=== PATIENT | female | born 2000 | race African-American/Black ===

== ENCOUNTER 2019-01-29 04:09 | Emergency (ER) | payer SELFPAY ==
[2019-01-29 04:45] LABS: #Basophils 0.1 thou/uL (0.0-0.2); #Lymphocytes 2.8 thou/uL (1.20-3.40); #Monocytes 0.7 thou/uL (0.11-0.59); #Neutrophils 5.5 thou/uL (1.40-6.50); %Basophils 0.6 % (0.0-1.0); %Eosinophils 0.1 % (0.0-10.0); %Monocytes 7.4 % (0.0-4.0); %Neutrophils 60.9 % (31.0-61.0); Hemoglobin 11.4 g/dL (12.0-16.0); Mean Corpuscular HGB CONC 31.3 g/dL (32.0-36.0); Mean Corpuscular Volume 76.7 fL (78.0-98.0); Mean Platelet Volume 8.5 fL (7.4-10.4); Platelet Count 241 thou/uL (130-400); RBC Distribution Width 13.7 % (11.5-14.5); Red Blood Cell (RBC) Count 4.75 mill/uL (4.00-5.20)
[2019-01-29 04:50] LABS: BHCG - Serum Negative (NEGATIVE); Pregs Control Background? CLEAR/WHITE (CLR/WHITE); Pregs Control Bar Appear? YES (CONTROL BAR)
[2019-01-29 05:04] LABS: ALT (SGPT) 12 U/L (8-55); AST (SGOT) 19 U/L (5-34); Alkaline Phosphatase 79 U/L (40-150); Anion Gap 11 mmol/L (10-20); BUN (Urea Nitrogen) 9 mg/dL (7.0-18.7); Bilirubin, Total 0.2 mg/dL (0.2-1.2); Calc. Creatinine Clearance 0 mL/min (70-130); Calcium 8.9 mg/dL (7.8-10.44); Carbon Dioxide 27 mmol/L (22-29); Chloride 100 mmol/L (98-107); Estimated GFR-MDRD 85; Globulin 3.3 g/dL (2.4-3.5); Glucose 91 mg/dL (70-105); Potassium 3.3 mmol/L (3.5-5.1); Protein, Total 7.3 g/dL (6.0-8.3); Sodium 135 mmol/L (136-145)
[2019-01-29] MEDS ORDERED: Mag-Al 1200 mg/1200 mg/30 ML UDCUP ONE (06:31)
[2019-01-29] MEDS ORDERED: Lidocaine Viscous Sol 2% 15 ml UD Cup ONE (06:31)
[2019-01-29] MEDS ORDERED: Ketorolac Tromethamine 30 MG/ML VIAL ONE (07:50)
--- NOTE | 2019-01-29 10:23 | RAD ---
CHEST 2 VIEWS: Date: 01/29/19 HISTORY: Chest pain x2 days. COMPARISON: None. FINDINGS: Normal cardiac silhouette. Lungs and pleural spaces are clear. No pneumothorax or osseous abnormaliti es. IMPRESSION: No acute cardiopulmonary process. POS: OFF
--- NOTE | 2019-01-29 10:50 | CT ---
CT ANGIO OF CHEST PERFORMED WITH IV CONTRAST ENHANCEMENT WITH 3D RECONSTRUCTIONS: Date: 01/29/19 HISTORY: Cough. Chest pain x3 days. Elevated D-Dimer. FINDINGS: The lungs are clear of any infiltrative process. There is no significant mediastinal or hilar adenopathy. No significant axillary adenopathy. Thoracic aorta is normal in caliber. There is fair pulmonary artery opacification. Smaller peripheral emboli cannot be excluded, but there is no CT evidence for any pulmonary embolus. Visualized liver parenchyma shows no focal findings. IMPRESSION: No CT evidence for pulmonary embolus. POS: C
[2019-01-29] MEDS ORDERED: ISOVUE-370 76%-LOCM 1 ML ONE (11:34)
== END 2019-01-29 08:43 | disposition home or self-care (01) ==
LOC: ERS 04:09
DX: R07.89 Other chest pain (principal); B34.9 Viral infection, unspecified
CPT/HCPCS: 36415; 71046; 71275; 80053; 84484; 84703; 85025; 85379; 93005; 94760; 96374; J1885; Q9966